=== PATIENT | female | born 1970 | race Caucasian/White ===

== ENCOUNTER → 2019-12-14 07:36 | Outpatient (BNVA) | payer MEDICAID, SELFPAY | PROVIDERS: PCP Family Medicine; Visit Provider Nurse Practitioner | DX: F33.3 Major depressive disorder, recurrent, severe with psychotic symptoms (principal); F43.12 Post-traumatic stress disorder, chronic; F41.1 Generalized anxiety disorder | CPT/HCPCS: 99214 ==

== ENCOUNTER → 2020-02-19 08:40 | Outpatient (BNVA) | payer MEDICAID, SELFPAY | PROVIDERS: PCP Family Medicine; Visit Provider Nurse Practitioner | DX: F33.3 Major depressive disorder, recurrent, severe with psychotic symptoms (principal); F43.12 Post-traumatic stress disorder, chronic; F41.1 Generalized anxiety disorder | CPT/HCPCS: 99213 ==

== ENCOUNTER → 2020-04-01 09:14 | Outpatient (BNVA) | payer MEDICAID, SELFPAY | PROVIDERS: PCP Family Medicine; Visit Provider Nurse Practitioner | DX: F33.3 Major depressive disorder, recurrent, severe with psychotic symptoms (principal); F43.12 Post-traumatic stress disorder, chronic; F41.1 Generalized anxiety disorder | CPT/HCPCS: 99214 ==

== ENCOUNTER → 2020-04-30 07:36 | Outpatient (BNVA) | payer MEDICAID, SELFPAY | PROVIDERS: PCP Family Medicine; Visit Provider Nurse Practitioner | DX: F33.3 Major depressive disorder, recurrent, severe with psychotic symptoms (principal); F43.12 Post-traumatic stress disorder, chronic; F41.1 Generalized anxiety disorder | CPT/HCPCS: 99214 ==

== ENCOUNTER → 2020-05-22 07:37 | Outpatient (BNVA) | payer MEDICAID, SELFPAY | PROVIDERS: PCP Family Medicine; Visit Provider Nurse Practitioner | DX: F41.1 Generalized anxiety disorder (principal); F43.12 Post-traumatic stress disorder, chronic; F33.3 Major depressive disorder, recurrent, severe with psychotic symptoms | CPT/HCPCS: 99214 ==

== ENCOUNTER → 2020-06-18 07:43 | Outpatient (BNVA) | payer MEDICAID, SELFPAY | PROVIDERS: PCP Family Medicine; Visit Provider Nurse Practitioner | DX: F41.1 Generalized anxiety disorder (principal); F43.12 Post-traumatic stress disorder, chronic; F33.3 Major depressive disorder, recurrent, severe with psychotic symptoms | CPT/HCPCS: 99214 ==

== ENCOUNTER → 2020-08-12 10:30 | Outpatient (BNVA) | payer MEDICAID, SELFPAY | PROVIDERS: PCP Family Medicine; Visit Provider Nurse Practitioner | DX: F41.1 Generalized anxiety disorder (principal); F43.12 Post-traumatic stress disorder, chronic; F33.3 Major depressive disorder, recurrent, severe with psychotic symptoms | CPT/HCPCS: 99214 ==

== ENCOUNTER → 2020-09-23 07:49 | Outpatient (BNVA) | payer MEDICAID, SELFPAY | PROVIDERS: PCP Family Medicine; Visit Provider Nurse Practitioner | DX: F41.1 Generalized anxiety disorder (principal); F43.12 Post-traumatic stress disorder, chronic; F33.3 Major depressive disorder, recurrent, severe with psychotic symptoms | CPT/HCPCS: 99214 ==

== ENCOUNTER 2024-10-30 09:16 | Emergency (ER) | payer MEDICARE, SELFPAY ==
[2024-10-30 09:40] VITALS: BP 162/93; PULSE 60; RESP 18; TEMP 36.7; O2SAT 96; BMI 29.2
[2024-10-30 09:43] LABS: Glucose Point of Care 150 mg/dL (70-110)
[2024-10-30 10:10] LABS: Basophils # 0.1 10^3/uL (0.0-0.1); Basophils % 1.2 %; Eosinophils # 0.2 10^3/uL (0.0-0.8); Eosinophils % 2.7 %; Hematocrit 43.3 % (36-47); Lymphocytes # 2.7 10^3/uL (0.8-4.8); Lymphocytes % 44.6 %; Mean Corpuscular Hemoglobin 28.7 pg (27-33); Mean Corpuscular Volume 86.8 fl (85-98); Mean Platelet Volume 9.6 fL (7.4-10.4); Monocytes # 0.5 10^3/uL (0.2-0.9); Neutrophils # 2.56 10^3/uL (1.8-7.7); Neutrophils % 42.5 %; Nucleated Red Blood Cells % 0 %; Platelet Count 377 10^3/cmm (157-399); Red Blood Count 4.99 10^6/uL (3.85-5.65); Red Cell Distribution Width 12.8 % (12.1-15.1); White Blood Count 6.01 10^3/uL (3.29-11.43)
[2024-10-30 10:22] LABS: Alanine Aminotransferase 15 U/L (0-33); Albumin Level 4.4 g/dL (3.5-5.2); Alkaline Phosphatase 176 U/L (35-105); Anion Gap 15.8 (5-19); Aspartate Amino Transferase 12 U/L (0-32); Blood Urea Nitrogen 11 mg/dL (6-20); Calcium 9.9 mg/dL (8.5-10.5); Carbon Dioxide 23 mmol/L (22-29); Chloride 104 mmol/L (98-107); Creatinine Clr Calc Pharmacy 113.8813; Globulin 3.3 g/dL (1.3-4.6); Glucose 148 mg/dL (65-115); Osmolality Calculated 290 mOsm/kg (285-295); Potassium 3.8 mmol/L (3.5-5.1); Sodium 139 mmol/L (136-145); Total Bilirubin 0.3 mg/dL (0.15-1.2); Total Protein 7.7 g/dL (6.6-8.7)
[2024-10-30 10:28] LABS: Bacteria Urine 2+ /hpf; Hyaline Casts Urine 1.21 /lpf; RBC Urine 0-2 /hpf (0-2)
[2024-10-30 10:31] LABS: Add Urine Culture? No; Add Urine Microscopic? YES; Bilirubin Urine Neg (Negative); Blood Urine Neg (Negative); Glucose Urine UA 1+ (Normal); Ketones Urine Negative (Negative); Leukocyte Esterase Urine Trace (Negative); Nitrate Urine Negative (Negative); Protein Urine Neg (Negative); Urine Appearance Slightly Cloudy (CLEAR); Urine Color Yellow (Yellow); Urobilinogen Urine Norm (Negative); pH Urine 5 (5-7)
[2024-10-30 10:33] VITALS: BP 136/90; PULSE 60; RESP 18; O2SAT 98
--- NOTE | 2024-10-30 10:40 | W.ED.GENADLT ---
HPI - General Adult General: Chief complaint: General Medical Stated complaint: low sugar problems Time Seen by Provider: 10/30/24 09:50 Source: patient Mode of arrival: ambulatory Limitations: no limitations History of Present Illness: Patient is a 54-year-old female who presents today with complaints of intermittent hypoglycemia. Patient wears a Ya Freestyle and reports that last night her meter/sensor was telling her her blood sugar was running in the 40s. She reports that she then ate a bowl of mac & cheese and drank a Mountain Dew. She reports that this brought her blood sugar up to the 60s prior to bed. Patient reports that when she woke up this morning her blood sugar was running in the 80s, so once again she drank a Mountain Dew. She notes intermittent hot flashes and some nausea that she feels correlates with her low blood sugars. Patient also having some mild right upper abdominal pain-states she read on some report while she was in the hospital that she had stage I non-alcoholic liver cirrhosis . Of note patient had her right arm amputated in November 2023 after waking up from a 3 day diabetic coma . She states she is a type I diabetic but was only diagnosis a few years ago. Was initially on Metformin but was taken off of this. She now has a basal insulin and takes Jardiance. Onset (ago): day(s) Associated symptoms: Reports diaphoresis (intermittent) and nausea; Deny chest pain, dyspnea, headache(s), rash, palpitations, syncope or vomiting Treatments prior to arrival: none Related Data Home Medications ?Medication ?Instructions ?Recorded ?Confirmed lisinopril 10 1 tab PO DAILY 08/28/19 10/30/24 mg-hydrochlorothiazide 12.5 mg tablet empagliflozin 25 mg tablet 25 mg PO DAILY 10/30/24 10/30/24 (Jardiance) icosapent ethyl 1 gram capsule 2 g PO BID 10/30/24 10/30/24 (Vascepa) insulin glargine 100 unit/mL (3 10 unit SUBCUT QPM 10/30/24 10/30/24 mL) subcutaneous pen (Lantus Solostar U-100 Insulin) levothyroxine 137 mcg tablet 137 mcg PO DAILY 10/30/24 10/30/24 (Synthroid) mirabegron 50 mg tablet,extended 50 mg PO DAILY 10/30/24 10/30/24 release 24 hr (Myrbetriq) ondansetron HCl 4 mg tablet 4 mg PO Q6H PRN Nausea And Vomiting 10/30/24 10/30/24 rosuvastatin 10 mg tablet 10 mg PO DAILY 10/30/24 10/30/24 Allergies Allergy/AdvReac Type Severity Reaction Status Date / Time No Known Allergies Allergy Unverified 08/28/19 13:32 Review of Systems Const: Reports: chills (intermittent) and diaphoresis (intermittent); Denies: fever(s) Eyes: Denies: change in vision Card: Denies: chest pain, palpitations or syncope Resp: Denies: dyspnea GI: Reports: abdominal pain (intermittent; RUQ) and nausea; Denies: vomiting, diarrhea or change in bowel habits : Denies: flank pain Musc: Denies: neck pain, back pain, extremity pain, extremity swelling, joint pain or joint swelling Skin/Breast: Denies: rash Neuro: Denies: headache(s), numbness in extremities, weakness in extremities, sensory changes, lack of coordination or dizziness PFSH ED PFSH: Medical History Major depressive disorder, recurrent, severe with psychotic symptoms Post-traumatic stress disorder, chronic Generalized anxiety disorder Social History Smoking and tobacco/nicotine status: current some day tobacco/nicotine user e-cigarettes E-Cigarette Details: vaporizer device Physical Exam Const: COMMON NORMALS: no acute distress, average body habitus, patient oriented x3, no limitations, healthy appearing, alert and well nourished GENERAL APPEARANCE: cooperative ORIENTATION/CONSCIOUSNESS: Yes awake, Yes oriented to person, Yes oriented to place and Yes oriented to time HENMT: COMMON NORMALS: normocephalic and atraumatic HEAD & SCALP: normal to inspection, normocephalic and atraumatic Eye: COMMON NORMALS: no scleral icterus GENERAL EYE: appearance normal, both eyes and all related structures Neck/C-Spine: GENERAL: Yes normal visual inspection Chest: COMMONS NORMALS: normal inspection of the chest and normal palpation of entire chest wall Resp: COMMON NORMALS: normal respiratory effort, No retractions, No use of accessory muscles and clear to auscultation bilaterally AUSCULTATION: clear to auscultation bilaterally Cardio: COMMON NORMALS: regular rate and regular rhythm RATE: regular rate RHYTHM: regular rhythm GI: COMMON NORMALS: Normal to inspection, nondistended, normoactive bowel sounds present, Soft to palpation, No hepatosplenomegaly present and no masses INSPECTION: Yes normal to inspection AUSCULTATION: Yes normoactive bowel sounds PALPATION: Yes Soft to palpation, Yes Tenderness to palpation present (GI) Details: RUQ (mild; non-surgical examination), No Guarding due to palpation present (GI), No Rigid due to palpation and Yes No hepatosplenomegaly present : COMMON NORMALS: Yes no CVA tenderness BLADDER/KIDNEY EXAM: Yes no CVA tenderness Back/Pelvis: COMMON NORMALS: no CVA tenderness Extremity: NARRATIVE EXTREMITY EXAM: Right arm amputation GENERAL: Yes normal exam except as noted Neuro: COMMON NORMALS: patient oriented x3, moves all extremities, no focal motor deficits and no sensory deficits noted SENSORIUM/ORIENTATION: Yes alert, Yes oriented to person, Yes oriented to place and Yes oriented to time Skin: COMMON NORMALS: no rashes or lesions noted GENERAL SKIN EXAM: no rashes or lesions noted Course Vital Signs: Vital signs: Vital Signs Temperature 98.1 F 10/30/24 09:40 Pulse Rate 73 10/30/24 13:24 Respiratory Rate 18 10/30/24 12:19 Blood Pressure 137/80 10/30/24 13:24 Pulse Oximetry 96 10/30/24 13:24 Oxygen Delivery Me thod Room Air 10/30/24 12:19 MDM - General Adult Medical Decision Making Patient here due to readings of hypoglycemia on her ya [employer]yle continuous glucose monitoring device. Upon arrival to the emergency department, her meter was telling her her blood sugar was 90 however our POC glucose check was 150. Her venapuncture/blood draw showing a blood glucoase of 148. During my examination, her meter was reading 72 and we rechecked POC glucose and it was reading 120s. There seems to be a 50-60 mg/dL difference between the two. She does states she has 4 days left on her current meter before changing. Was able to contact our outpatient pharmacy and get her replacement. This was replaced here in the emergency department and we awaited time for calibration. Her meter is now reading at 110 and our fingerstick glucometer showing 120. This is much more acceptable. Discussed continuing plan to follow up with PCP at [facility] (states she is just waiting for her Medicaid to kick in). She is having some minor right upper quadrant abdominal pain. Exam is nonsurgical. Her vital signs are stable. She has a normal white count. Normal LFTs. This can also be followed up as an outpatient. Return to ED precautions discussed. Medical Records I reviewed the patient's medical records. Lab Data I reviewed the patient's lab results. 10/30/24 08:55 10/30/24 08:55 Laboratory Results WBC 6.01 10^3/uL (3.29-11.43) 10/30/24 08:55 RBC 4.99 10^6/uL (3.85-5.65) 10/30/24 08:55 Hgb 14.30 g/dL (11.27-16.99) 10/30/24 08:55 Hct 43.3 % (36-47) 10/30/24 08:55 MCV 86.8 fl (85-98) 10/30/24 08:55 MCH 28.7 pg (27-33) 10/30/24 08:55 MCHC 33.0 g/dL (30-55) 10/30/24 08:55 RDW 12.8 % (12.1-15.1) 10/30/24 08:55 Plt Count 377 10^3/cmm (157-399) 10/30/24 08:55 MPV 9.6 fL (7.4-10.4) 10/30/24 08:55 Neut % (Auto) 42.5 % 10/30/24 08:55 Lymph % (Auto) 44.6 % 10/30/24 08:55 [place] % (Auto) 9.0 % 10/30/24 08:55 Eos % (Auto) 2.7 % 10/30/24 08:55 Baso % (Auto) 1.2 % 10/30/24 08:55 Neut # (Auto) 2.56 10^3/uL (1.8-7.7) 10/30/24 08:55 Lymph # (Auto) 2.7 10^3/uL (0.8-4.8) 10/30/24 08:55 [place] # (Auto) 0.5 10^3/uL (0.2-0.9) 10/30/24 08:55 Eos # (Auto) 0.2 10^3/uL (0.0-0.8) 10/30/24 08:55 Baso # (Auto) 0.1 10^3/uL (0.0-0.1) 10/30/24 08:55 Nucleated RBC % (auto) 0 % 10/30/24 08:55 Nucleated RBCs # 0.0 /100WBC 10/30/24 08:55 Sodium 139 mmol/L (136-145) 10/30/24 08:55 Potassium 3.8 mmol/L (3.5-5.1) 10/30/24 08:55 Chloride 104 mmol/L (98-107) 10/30/24 08:55 Carbon Dioxide 23 mmol/L (22-29) 10/30/24 08:55 Anion Gap 15.8 (5-19) 10/30/24 08:55 BUN 11 mg/dL (6-20) 10/30/24 08:55 Creatinine 0.6 mg/dL (0.5-0.9) 10/30/24 08:55 GFR Calculation 105.0 mL/min (90-130) 10/30/24 08:55 Glucose 148 mg/dL (65-115) H 10/30/24 08:55 POC Glucose 121 mg/dL (70-110) H 10/30/24 12:53 Calculated Osmolality 290 mOsm/kg (285-295) 10/30/24 08:55 Calcium 9.9 mg/dL (8.5-10.5) 10/30/24 08:55 Total Bilirubin 0.3 mg/dL (0.15-1.2) 10/30/24 08:55 AST 12 U/L (0-32) 10/30/24 08:55 ALT 15 U/L (0-33) 10/30/24 08:55 Alkaline Phosphatase 176 U/L (35-105) H 10/30/24 08:55 Total Protein 7.7 g/dL (6.6-8.7) 10/30/24 08:55 Albumin 4.4 g/dL (3.5-5.2) 10/30/24 08:55 Globulin 3.3 g/dL (1.3-4.6) 10/30/24 08:55 Urine Color Yellow (Yellow) 10/30/24 10:00 Urine Appearance Slightly cloudy (CLEAR) 10/30/24 10:00 Urine pH 5 (5-7) 10/30/24 10:00 Ur Specific [place] 1.030 (1.005-1.030) 10/30/24 10:00 Urine Protein Neg (Negative) 10/30/24 10:00 Urine Glucose (UA) 1+ (Normal) H 10/30/24 10:00 Urine Ketones Negative (Negative) 10/30/24 10:00 Urine Blood Neg (Negative) 10/30/24 10:00 Urine Nitrate Negative (Negative) 10/30/24 10:00 Urine Bilirubin Neg (Negative) 10/30/24 10:00 Urine Urobilinogen Norm mg/dL (Negative) 10/30/24 10:00 Ur Leukocyte Esterase Trace (Negative) H 10/30/24 10:00 Urine RBC 0-2 /hpf (0-2) 10/30/24 10:00 Urine WBC 6-10 /hpf (0-5) 10/30/24 10:00 Ur Squamous Epith Cells 11-20 /hpf (0-5) H 10/30/24 10:00 Amorphous Sediment Not Reportable 10/30/24 10:00 Urine Bacteria 2+ /hpf (NONE) H 10/30/24 10:00 Hyaline Casts 1.21 /lpf 10/30/24 10:00 No radiology studies performed this visit Discharge Plan Discharge Patient Disposition: Home Clinical Impression: Uses self-applied continuous glucose monitoring device Condition: Stable Prescriptions: No Action lisinopril-hydrochlorothiazide 10-12.5 mg tablet 1 tab PO DAILY levothyroxine [Synthroid] 137 mcg Tablet 137 mcg PO DAILY ondansetron HCl [Zofran] 4 mg Tablet 4 mg PO Q6H PRN (Reason: Nausea And Vomiting) rosuvastatin 10 mg Tablet 10 mg PO DAILY insulin glargine [Lantus Solostar U-100 Insulin] 100 unit/mL (3 mL) Insulin Pen 10 unit SUBCUT QPM mirabegron [Myrbetriq] 50 mg Tablet Extended Release 24 Hr 50 mg PO DAILY icosapent ethyl [Vascepa] 1 gram Capsule 2 g PO BID Jardiance 25 mg Tablet 25 mg PO DAILY Discharge Orders: Discharge ED (Routine); Ordered 10/30/24 Ordered By: Alexandria Mcgraw Referrals: Clarissa Moreno MD [Primary Care Provider] - Activity Restrictions/Additional Instructions: We have replaced your glucose monitor and your readings are now in the line with our glucose testing here. This hopefully will avoid any further error readings. As we discussed, please continue plan to follow-up with your primary care provider for further evaluation of symptoms. Print Language: Telugu Coding Level of Care Code ED [employer]
[2024-10-30 11:57] LABS: Glucose Point of Care 125 mg/dL (70-110)
[2024-10-30 12:19] VITALS: PULSE 73; RESP 18; O2SAT 97
[2024-10-30 12:57] LABS: Glucose Point of Care 121 mg/dL (70-110)
[2024-10-30 13:24] VITALS: BP 137/80; PULSE 73; O2SAT 96
== END 2024-10-30 13:25 | disposition home or self-care (01) ==
PROVIDERS: Emergency Provider Physician Assistant; PCP Family Medicine
DX: Z96.49 Presence of other endocrine implants (principal); R10.11 Right upper quadrant pain; Z79.4 Long term (current) use of insulin; F17.290 Nicotine dependence, other tobacco product, uncomplicated
CPT/HCPCS: 36415; 36416; 80053; 81001; 82962; 85025; 99283

== ENCOUNTER 2024-12-06 07:41 | Outpatient (CLI) | payer OTHER, SELFPAY ==
--- NOTE | 2024-12-06 07:45 | CT_ITS ---
WS: [id number] LDCT LUNG CANCER SCREENING TECHNIQUE: Noncontrast CT of the chest with coronal and sagittal reformatted images. CLINICAL INFORMATION: HX OF TOBACCO USE COMPARISON: None. DLP: 70.31 mGy.cm DIvol: Mean CTDIvol: 1.70 (mGy) All CT scans at [facility] use at least one of these dose optimization techniques: automated exposure control; mA and/or kV adjustment per patient size (includes targeted exams where dose is matched to clinical indication); or iterative reconstruction. FINDINGS: 3 mm noncalcified nodule RIGHT lower lobe. 3 mm noncalcified nodule RIGHT lower lobe laterally. Numerous tiny micronodules in the upper lobes. Bilateral breast implants. Normal caliber thoracic aorta. Adrenal glands are normal. Small gallbladder calculus. Small esophageal hiatal hernia. Moderate thoracic kyphosis. CT/CT lung screening [id number] IMPRESSION: LUNG-RADS: 2-Benign Appearance or Behavior FOLLOW UP: 12 Month: Continue annual screening with LDCT
== END 2024-12-06 07:42 | disposition home or self-care (01) ==
LOC: RAD 07:43
PROVIDERS: PCP Family Medicine; Visit Provider Family Medicine
DX: Z12.2 Encounter for screening for malignant neoplasm of respiratory organs (principal); Z87.891 Personal history of nicotine dependence; R91.8 Other nonspecific abnormal finding of lung field; Z98.82 Breast implant status; K80.20 Calculus of gallbladder without cholecystitis without obstruction; K44.9 Diaphragmatic hernia without obstruction or gangrene; M40.294 Other kyphosis, thoracic region
CPT/HCPCS: 71271

== ENCOUNTER → 2024-12-12 09:23 | Outpatient (BNVA) | payer MEDICARE, SELFPAY | PROVIDERS: PCP Family Medicine; Referring Provider Family Medicine; Visit Provider Surgery | DX: K21.9 Gastro-esophageal reflux disease without esophagitis (principal) | CPT/HCPCS: 99204 ==

== ENCOUNTER 2024-12-19 11:25 | Outpatient (CLI) | payer OTHER, MEDICAID, SELFPAY ==
--- NOTE | 2024-12-19 11:37 | XR_ITS ---
WS: [id number] XR hip LT 2-3V wo/w pel* [id number] REASON FOR EXAM: LEFT HIP PAIN FINDINGS: No fracture or focal bone lesion. Moderate narrowing of the posterior inferior joint space. Mild narrowing of the superior anterior joint space with mild subchondral sclerosis and osteophytosis of the acetabulum. Mild osteophytosis of the femoral head. XR/XR hip LT 2-3V wo/w pel* [id number] IMPRESSION: Mild osteoarthritis in the left hip as above.
== END 2024-12-19 11:26 | disposition home or self-care (01) ==
PROVIDERS: PCP Family Medicine; Visit Provider Nurse Practitioner Family
DX: M16.12 Unilateral primary osteoarthritis, left hip (principal); M25.752 Osteophyte, left hip
CPT/HCPCS: 73502

== ENCOUNTER 2025-01-03 07:39 | Day surgery (SDC) | payer OTHER, SELFPAY ==
[2025-01-03 07:56] VITALS: BP 133/88; PULSE 74; RESP 16; TEMP 36.3; O2SAT 99; BMI 28.3
--- NOTE | 2025-01-03 08:02 | W.PM.OPSUD ---
Surgery/Procedure H&P Update DATE OF PROCEDURE: January 03, 2025 DATE H&P PERFORMED: 12/12/24 H&P UPDATE INFORMATION: I have reviewed H&P completed within last 30 days, I have examined patient prior to procedure, No changes to prior documentation, Changes to prior documentation as noted here and Risks and benefits of the procedure reviewed PLANNED PROCEDURE: Operation Date: 01/03/25 09:00 Proposed Procedures p EGD 13018 K21.9(Not Applicable) - Dk Benitez MD
--- NOTE | 2025-01-03 08:17 | P.ANESASSM_ITS ---
Pre-Anesthetic Assessment Height/Weight: Height 1.5 m Weight 63.503 kg Temp Pulse Resp BP Pulse Ox O2 Del Method 97.3 F L 74 16 133/88 99 Room Air 01/03/25 07:56 01/03/25 07:56 01/03/25 07:56 01/03/25 07:56 01/03/25 07:56 01/03/25 07:56 Preop Diagnosis: GERD Operation Date: 01/03/25 09:00 Proposed Procedures p EGD 02400 K21.9(Not Applicable) - Dk Benitez MD Familial anesthetic complications: none Was Beta Wan taken within 24 hours: N/A Was Clonidine taken within 24 hours: N/A Last intake: Intake Last Liquid Date 01/02/25 Last Liquid Time 19:00 Last Solid Date 01/02/25 Last Solid Time 19:00 Social Tobacco (vape) Exam alert, oriented x 3, clear to auscultation bilaterally and regular rate & rhythm Airway Submandibular: within normal limits Cervical ROM: within normal limits Mallampati: Class I Dentition: false Pulmonary None reported CV/HEM Hypertension None reported Hepatic Cirrhosis (stage 1) GI Gastroesophageal Reflux Disease Metabolic Diabetes Mellitus, Hyperlipidemia and Thyroid Disease [facility] None reported Neuropsych Anxiety and Depression Anesthetic Plan ASA status: 3 Anesthesia: MAC Medications/Allergies Home Medications ?Medication ?Instructions ?Recorded ?Confirmed ?Last Taken ?Type lisinopril 10 1 tab PO DAILY 08/28/1912/1701/02/25 07:00 History mg-hydrochlorothiazide 12.5 mg tablet insulin glargine 100 unit/mL (3 10 unit SUBCUT QPM 01/01/25 01/02/25 07:00 History mL) subcutaneous pen (Lantus Solostar U-100 Insulin) levothyroxine 137 mcg tablet 137 mcg PO DAILY 10/30/24 01/01/25 01/03/25 05:00 History (Synthroid) mirabegron 50 mg tablet,extended 50 mg PO DAILY 01/01/25 01/02/25 07:00 History release 24 hr (Myrbetriq) ondansetron HCl 4 mg tablet 4 mg PO Q6H PRN Nausea And Vomiting 10/30/24 01/01/25 01/02/25 07:00 History rosuvastatin 10 mg tablet 10 mg PO DAILY 10/30/24 0601/1001/02/25 07:00 History gabapentin 300 mg capsule 300 mg PO BID 12/12/2401/0101/02/25 07:00 History hydroxyzine HCl 25 mg tablet 25 mg PO QID PRN Anxiety 12/12/24 01/01/25 01/02/25 07:00 History nystatin 100,000 unit/gram topical 1 applic topical DA EDGARD 12/12/24 01/01/25 01/02/25 07:00 History powder Allergies Allergy/AdvReac Type Severity Reaction Status Date / Time epinephrine AdvReac Severe ALGY-Redness Verified 01/03/25 07:53 of Skin [facility] Anesthesia Medical History (Updated 01/03/25 @ 08:21 by Kaylan Keller CRNA) 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
[2025-01-03 08:21] LABS: Glucose Point of Care 169 mg/dL (70-110)
[2025-01-03] MEDS: sodium chloride 0.9% 1,000 ML 15 ML IV (08:33)
[2025-01-03 08:54] VITALS: BP 126/61; PULSE 77; RESP 16; TEMP 36.1; O2SAT 94
[2025-01-03 09:07] VITALS: BP 124/63; PULSE 67; RESP 18; O2SAT 94
--- NOTE | 2025-01-03 09:20 | ANE.PACU2 ---
Inpatient post-anesthesia follow up: Airway intact: Yes Vital signs: Temperature 97.0 F Pulse Rate 67 Respiratory Rate 18 Blood Pressure 124/63 Pulse Oximetry 94 Oxygen Delivery Me thod Room Air Oxygen Flow Rate 3 Fraction of Inspir ed Oxygen Hydration adequate: Yes Nausea and vomiting: No Pain level: 1 Mental status: Baseline
== END 2025-01-03 09:20 | disposition home or self-care (01) ==
PROVIDERS: PCP Family Medicine; Visit Provider Surgery
PROC: 0DJ08ZZ Inspection of Upper Intestinal Tract, Via Natural or Artificial Opening Endoscopic (ICD-10-PCS; principal; 2025-01-03 09:00)
DX: K22.70 Barrett's esophagus without dysplasia (principal); K29.50 Unspecified chronic gastritis without bleeding; K21.00 Gastro-esophageal reflux disease with esophagitis, without bleeding; E11.9 Type 2 diabetes mellitus without complications; E78.5 Hyperlipidemia, unspecified; F17.290 Nicotine dependence, other tobacco product, uncomplicated; K74.60 Unspecified cirrhosis of liver; Z79.4 Long term (current) use of insulin; Z79.890 Hormone replacement therapy; Z79.899 Other long term (current) drug therapy
CPT/HCPCS: 36416; 43239; 82962; 88305; 88342; J2704; J7030

== ENCOUNTER 2025-04-17 07:50 | Outpatient (CLI) | payer MEDICARE, MEDICAID, SELFPAY ==
--- NOTE | 2025-04-17 08:02 | XRR_ITS ---
PROCEDURE INFORMATION: Exam: XR Lumbosacral Spine Exam date and time: 04/17/2025 8:11 AM Age: 54 years old Clinical indication: Low back pain; Lower back pain x few years. PT states she feels like her back pain makes her adjust how she is standing. TECHNIQUE: Imaging protocol: Radiologic exam of the lumbosacral spine. Views: 2 or 3 views. COMPARISON: CR XR hip LT 2-3V wo/w pel* [id number] 12/19/2024 11:42 AM FINDINGS: Bones/joints: There is a mild levoscoliosis of the lumbar spine. No evidence of a fracture or destructive bone lesion. There is mild degenerative facet arthropathy in the lower lumbar spine. No significant intervertebral disc space narrowing appreciated. Soft tissues: Unremarkable. XR/XR lumbar spine 2-3V* [id number] IMPRESSION: Mild degenerative changes in the lower lumbar spine. No acute osseous lesions appreciated.
== END 2025-04-17 07:51 | disposition home or self-care (01) ==
PROVIDERS: PCP Family Medicine; Visit Provider Family Medicine
DX: E10.9 Type 1 diabetes mellitus without complications (principal); M47.816 Spondylosis without myelopathy or radiculopathy, lumbar region; E03.9 Hypothyroidism, unspecified; Z98.890 Other specified postprocedural states; Z90.89 Acquired absence of other organs; C73 Malignant neoplasm of thyroid gland; M41.86 Other forms of scoliosis, lumbar region
CPT/HCPCS: 72100; 99204

== ENCOUNTER 2025-04-27 09:53 | Outpatient (CLI) | payer OTHER, SELFPAY ==
[2025-04-27 11:14] LABS: Alanine Aminotransferase 13 U/L (0-33); Albumin Level 4.3 g/dL (3.5-5.2); Alkaline Phosphatase 165 U/L (35-105); Anion Gap 16.1 (5-19); Aspartate Amino Transferase 13 U/L (0-32); Blood Urea Nitrogen 11 mg/dL (6-20); Calcium 9.1 mg/dL (8.5-10.5); Carbon Dioxide 23 mmol/L (22-29); Chloride 101 mmol/L (98-107); Globulin 3.2 g/dL (1.3-4.6); Glucose 143 mg/dL (65-115); Osmolality Calculated 284 mOsm/kg (285-295); Potassium 4.1 mmol/L (3.5-5.1); Sodium 136 mmol/L (136-145); Total Protein 7.5 g/dL (6.6-8.7)
== END 2025-04-27 09:54 | disposition home or self-care (01) ==
LOC: LAB 09:56
PROVIDERS: PCP Family Medicine; Visit Provider Internal Medicine
DX: E10.9 Type 1 diabetes mellitus without complications (principal); C73 Malignant neoplasm of thyroid gland; Z98.890 Other specified postprocedural states; Z90.89 Acquired absence of other organs
CPT/HCPCS: 36415; 80053; 82947; 84432; 84681; 86337; 86341; 86800

== ENCOUNTER 2025-04-30 13:53 | Outpatient (CLI) | payer OTHER, MEDICAID, SELFPAY ==
--- NOTE | 2025-04-30 14:45 | US_ITS ---
WS: [id number] THYROID ULTRASOUND REASON FOR EXAM: thyroid cancer TECHNIQUE: Grayscale and Doppler ultrasound examination of the thyroid gland. FINDINGS: Status post thyroidectomy with no definite remnant thyroid tissue and no mass in the thyroidectomy bed. There are some mildly enlarged cervical lymph nodes which are elongated and have no significant increase in their short axis. There is abundant lymph node hilar fat within these nodes. US/US thyroid [id number] IMPRESSION: Status post thyroidectomy with no significant abnormality within the thyroidect frank bed. Mild reactive cervical lymph nodes.
== END 2025-04-30 13:54 | disposition home or self-care (01) ==
LOC: RAD 13:53
PROVIDERS: PCP Family Medicine; Visit Provider Internal Medicine
DX: C73 Malignant neoplasm of thyroid gland (principal); Z98.890 Other specified postprocedural states; E89.0 Postprocedural hypothyroidism; R59.0 Localized enlarged lymph nodes
CPT/HCPCS: 76536

== ENCOUNTER → 2025-05-01 08:23 | Outpatient (BNVA) | payer OTHER, MEDICAID, SELFPAY | PROVIDERS: PCP Family Medicine; Visit Provider Surgery | DX: K22.70 Barrett's esophagus without dysplasia (principal) | CPT/HCPCS: 99213 ==

== ENCOUNTER 2025-05-14 14:52 | Emergency (ER) | payer OTHER, MEDICAID, SELFPAY ==
--- OUTSIDE RECORDS SUMMARY | 2023-09-27 09:35 | XMS_ITS | Continuity of Care Document ---
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 angry Thought Process: linear and goal directed Thought Content: denies si/hi/sb, visual/auditory hallucinationsOrientation: A/O x 4Memory/Concentration: intact/intactInsight/judgement: fair/fair EST PCP NEEDS A , HAS HAD FAMILY DR MONTE SIGNED. Instructions Date Instruction Additional Infor bishopion Giving encouragement to exercise Related to Body mass index (BMI) 32.0-32.9, adult Giving encouragement to exercise Related to Body mass index (BMI) 32.0-32.9, adult Dietary management e ducation, guidance, and counseling Related to Body mass index (BMI) 32.0-32.9, adult Dietary management e ducation, guidance, and counseling Related to Body mass index (BMI) 32.0-32.9, adult Management of mental health treatment Related to Schizoaffective Disorder, Bipolar type Dietary management e ducation, guidance, and counseling Related to Body mass index (BMI) 30.0-30.9, adult SOGI Documentation Women's Health Education Giving encouragement to exercise Related to Body mass index (BMI) 30.0-30.9, adult Giving encouragement to exercise Related to Body mass index (BMI) 30.0-30.9, adult Dietary management e ducation, guidance, and counseling Related to Body mass index (BMI) 30.0-30.9, adult Management of mental health treatment Related to Major Depressive Disorder, Single episode, Moderate Giving encouragement to exercise Related to Body mass index (BMI) 31.0-31.9, adult Dietary management e ducation, guidance, and counseling Related to Body mass index (BMI) 31.0-31.9, adult Community Resource Guide Confidential History Assessments Type Assessment Date No Information
[2025-05-14 14:57] VITALS: BP 154/107; PULSE 81; RESP 16; TEMP 36.6; O2SAT 95; BMI 30.2
--- NOTE | 2025-05-14 15:06 | US_ITS ---
WS: [id number] RIGHT UPPER QUADRANT ULTRASOUND HISTORY: RUQ pain COMPARISON: None available. Liver: 17.3 cm in length. Normal size liver and echogenicity. No bile duct dilatation or mass. Portal Vein: Normal hepatopetal flow with monophasic waveform. Gallbladder: Normally distended gallbladder with stones. No pericholecystic fluid or gallbladder wall thickening. CBD: 0.3 cm Pancreas: Normal size and echogenicity. Right kidney: 10.1 cm in length. Normal size and echogenicity. No hydronephrosis or mass. Aorta and IVC: Unremarkable abdominal aorta and IVC. No ascites. US/US gall bladder [id number] IMPRESSION: 1. Cholelithiasis without evidence for acute cholecystitis. 2. No intrahepatic bile duct dilatation.
--- NOTE | 2025-05-14 15:06 | XR_ITS ---
WS: [id number] Exam: XR chest 1V portable [id number] Date/Time of Exam: 05/14/2025 3:08 PM Reason For Exam: R lower chest/RUQ pain No priors. Lungs are clear. Normal cardiomediastinal silhouette and regional bony elements. XR/XR chest 1V portable [id number] IMPRESSION: 1. Negative chest.
--- NOTE | 2025-05-14 15:06 | W.ED.ABDPA2 ---
HPI - Abdominal Pain General: Chief Complaint: Abdominal Pain Stated Complaint: abd pain Time Seen by Provider: 05/14/25 14:54 Source: patient Mode of arrival: ambulatory Limitations: no limitations History of Present Illness: Patient is a 54-year-old female with a history of Moseley's esophagus here for right upper quadrant pain that she first began noticing approximately 2 to 3 days ago. She states pain initially was intermittent but now seems to be more constant. She does not feel like eating affects her symptoms. She feels like it is somewhat worse with movement. She is not complaining of chest pain, shortness of breath, difficulty breathing. She does have a history of stomach problems and can often feel nauseous with this but has never had similar discomforts. She states she is passing stool and gas normally. She has not noted any rash or skin changes to the area. She underwent EGD back in December by Dr. Benitez for her Moseley's esophagus. MD elicited complaint: abdominal pain Pertinent past history: other (Moseley's esophagus) Onset (ago): day(s) Pain Consistency: constant Location: RUQ Severity: moderate Quality: sharp Radiation: none Migration to: no migration Exacerbating factors: movement Relieving factors: nothing Associated Symptoms: Reports no associated symptoms and nausea (chronic-reports history of stomach problems ); Denies chills, diarrhea, dysuria, fever(s), heartburn, syncope and vomiting Related Data Home Medications ?Medication ?Instructions ?Recorded ?Confirmed lisinopril 10 1 tab PO DAILY 08/28/19 05/04/25 mg-hydrochlorothiazide 12.5 mg tablet insulin glargine 100 unit/mL (3 10 unit SUBCUT QPM 10/30/24 05/04/25 mL) subcutaneous pen (Lantus Solostar U-100 Insulin) levothyroxine 137 mcg tablet 137 mcg PO DAILY 10/30/24 05/04/25 (Synthroid) mirabegron 50 mg tablet,extended 50 mg PO DAILY 10/30/24 05/04/25 release 24 hr (Myrbetriq) ondansetron HCl 4 mg tablet 4 mg PO Q6H PRN Nausea And Vomiting 10/30/24 05/04/25 gabapentin 300 mg capsule 300 mg PO BID 12/12/24 05/04/25 hydroxyzine HCl 25 mg tablet 25 mg PO QID PRN Anxiety 12/12/24 05/04/25 nystatin 100,000 unit/gram topical 1 applic topical DAILY 12/12/24 05/04/25 powder blood-glucose sensor (FreeStyle #1 ea 04/17/25 05/04/25 Ya 3 Sensor device) rosuvastatin 20 mg tablet mg PO 04/17/25 05/04/25 Previous Rx's ?Medication ?Instructions ?Recorded cariprazine 3 mg capsule (Vraylar) 3 mg PO DAILY #30 caps 02/02/25 hydroxyzine HCl 50 mg tablet 100 mg (2 x 50 mg) PO .HS #60 tabs 02/02/25 trazodone 100 mg tablet 100 mg PO .HS #30 tabs 02/02/25 escitalopram oxalate 20 mg tablet 20 mg PO DAILY #30 tabs 03/09/25 (Lexapro) Allergies Allergy/AdvReac Type Severity Reaction Status Date / Time epinephrine AdvReac Severe ALGY-Redness Verified 05/04/25 13:02 of Skin Review of Systems Const: Denies: fever(s), chills, body aches, fatigue or malaise Eyes: Denies: change in vision or blurry vision Card: Denies: chest pain, palpitations, irregular heart rhythm, lightheadedness, syncope or dyspnea on exertion Resp: Denies: dyspnea, productive cough or pain on inspiration GI: Reports: abdominal pain and nausea (chronic-reports history of stomach problems ); Denies: vomiting, heartburn or diarrhea : Denies: flank pain or dysuria Musc: Denies: neck pain, back pain, extremity pain, extremity swelling or joint pain Skin/Breast: Denies: rash Neuro: Denies: headache(s), numbness in extremities, weakness in extremities or sensory changes PFS ED PFSH: Medical History Nicotine vapor product user 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 Physical Exam Const: COMMON NORMALS: no acute distress, average body habitus, patient oriented x3, no limitations, healthy appearing, alert and well nourished GENERAL APPEARANCE: cooperative ORIENTATION/CONSCIOUSNESS: Yes awake, Yes oriented to person, Yes oriented to place and Yes oriented to time HENMT: COMMON NORMALS: normocephalic and atraumatic HEAD & SCALP: normocephalic and atraumatic Neck/C-Spine: COMMON NORMALS: full ROM, no lymphadenopathy, supple and no meningeal signs Chest: COMMONS NORMALS: normal inspection of the chest Resp: COMMON NORMALS: normal respiratory effort and clear to auscultation bilaterally AUSCULTATION: clear to auscultation bilaterally Cardio: COMMON NORMALS: regular rate and regular rhythm RATE: regular rate RHYTHM: regular rhythm GI: COMMON NORMALS: Normal to inspection, nondistended, normoactive bowel sounds present, Soft to palpation, No hepatosplenomegaly present and no masses INSPECTION: Yes normal to inspection AUSCULTATION: Yes normoactive bowel sounds PALPATION: Yes Soft to palpation, Yes Tenderness to palpation present (GI) (RUQ/R lower rib-chest wall), No Guarding due to palpation present (GI), No Rigid due to palpation and Yes No hepatosplenomegaly present GI image (female):  1. TTP : COMMON NORMALS: Yes no CVA tenderness BLADDER/KIDNEY EXAM: Yes no CVA tenderness Back/Pelvis: COMMON NORMALS: no CVA tenderness and thoracic and lumbar spine normal to inspection Extremity: COMMON NORMALS: normal to inspection NARRATIVE EXTREMITY EXAM: R UE amputation GENERAL: Yes normal exam except as noted Neuro: COMMON NORMALS: patient oriented x3, moves all extremities, no focal motor deficits, no sensory deficits noted and gait normal SENSORIUM/ORIENTATION: Yes alert, Yes oriented to person, Yes oriented to place and Yes oriented to time MENINGEAL SIGNS: Yes no meningeal signs Skin: COMMON NORMALS: no rashes or lesions noted GENERAL SKIN EXAM: no rashes or lesions noted Course Vital Signs: Vital signs: Vital Signs Temperature 97.9 F 05/14/25 14:57 Pulse Rate 81 05/14/25 14:57 Respiratory Rate 16 05/14/25 14:57 Blood Pressure 154/107 05/14/25 14:57 Pulse Oximetry 95 05/14/25 14:57 Oxygen Delivery Me thod Room Air 05/14/25 14:57 MDM - Abdominal Pain Medical Decision Making Patient presents with RUQ abdominal pain/R lower chest pain. Differential includes life-threatening and benign etiologies such as hepatitis, cholecystitis, choledocholithiasis, cholangitis, right lower lobe pneumonia, right lower pleural effusion, musculoskeletal chest wall pain, costochondritis, among others. DATA: History obtained from patient. Prior records reviewed. Labs ordered/reviewed: CBC, CMP, lipase, coags-overall fairly unremarkable. Imaging ordered/reviewed: CXR and US gallbladder-CXR unremarkable, US showing gallstones without evidence for cholecystitis. TREATMENT: Patient was not administered any medications here in the emergency department. IMPRESSION: Working diagnosis is symptomatic cholelithiasis vs chest wall pain/strain. DISPOSITION: Patient discharged home in good/stable condition. Prescriptions: none. Follow-up arranged with general surgery via CM referral. Patient advised on strict return precautions and verbalized understanding. Differential Diagnosis Likely abdominal pain Medical Records I reviewed the patient's medical records. Lab Data I reviewed the patient's lab results. 05/14/25 15:10 05/14/25 15:10 Labs/Radiology: Radiology Impressions Chest X-Ray 05/14/25 15:06 IMPRESSION: 1. Negative chest. Gallbladder Ultrasound 05/14/25 15:06 IMPRESSION: 1. Cholelithiasis without evidence for acute cholecystitis. 2. No intrahepatic bile duct dilatation. Laboratory Results WBC 8.10 10^3/uL (3.29-11.43) 05/14/25 15:10 RBC 4.99 10^6/uL (3.85-5.65) 05/14/25 15:10 Hgb 13.90 g/dL (11.27-16.99) 05/14/25 15:10 Hct 42.2 % (36-47) 05/14/25 15:10 MCV 84.6 fl (85-98) L 05/14/25 15:10 MCH 27.9 pg (27-33) 05/14/25 15:10 MCHC 32.9 g/dL (30-55) 05/14/25 15:10 RDW 12.7 % (12.1-15.1) 05/14/25 15:10 Plt Count 410 10^3/cmm (157-399) H 05/14/25 15:10 MPV 9.2 fL (7.4-10.4) 05/14/25 15:10 Neut % (Auto) 52.4 % 05/14/25 15:10 Lymph % (Auto) 37.3 % 05/14/25 15:10 [place] % (Auto) 7.9 % 05/14/25 15:10 Eos % (Auto) 1.5 % 05/14/25 15:10 Baso % (Auto) 0.7 % 05/14/25 15:10 Neut # (Auto) 4.24 10^3/uL (1.8-7.7) 05/14/25 15:10 Lymph # (Auto) 3.0 10^3/uL (0.8-4.8) 05/14/25 15:10 [place] # (Auto) 0.6 10^3/uL (0.2-0.9) 05/14/25 15:10 Eos # (Auto) 0.1 10^3/uL (0.0-0.8) 05/14/25 15:10 Baso # (Auto) 0.1 10^3/uL (0.0-0.1) 05/14/25 15:10 Nucleated RBC % (auto) 0 % 05/14/25 15:10 Nucleated RBCs # 0.0 /100WBC 05/14/25 15:10 PT 12.60 SECONDS (12.1-14.9) 05/14/25 15:10 INR 0.88 (0.8-1.2) 05/14/25 15:10 Sodium 138 mmol/L (136-145) 05/14/25 15:10 Potassium 4.2 mmol/L (3.5-5.1) 05/14/25 15:10 Chloride 102 mmol/L (98-107) 05/14/25 15:10 Carbon Dioxide 23 mmol/L (22-29) 05/14/25 15:10 Anion Gap 17.2 (5-19) 05/14/25 15:10 BUN 8 mg/dL (6-20) 05/14/25 15:10 Creatinine 0.7 mg/dL (0.5-0.9) 05/14/25 15:10 GFR Calculation 87.9 mL/min (90-130) L 05/14/25 15:10 Glucose 134 mg/dL (65-115) H 05/14/25 15:10 Calculated Osmolality 286 mOsm/kg (285-295) 05/14/25 15:10 Calcium 9.7 mg/dL (8.5-10.5) 05/14/25 15:10 Total Bilirubin 0.3 mg/dL (0.15-1.2) 05/14/25 15:10 AST 13 U/L (0-32) 05/14/25 15:10 ALT 17 U/L (0-33) 05/14/25 15:10 Alkaline Phosphatase 182 U/L (35-105) H 05/14/25 15:10 Total Protein 7.8 g/dL (6.6-8.7) 05/14/25 15:10 Albumin 4.5 g/dL (3.5-5.2) 05/14/25 15:10 Globulin 3.3 g/dL (1.3-4.6) 05/14/25 15:10 Lipase 43 U/L (13-60) 05/14/25 15:10 All radiology interpretation(s) finalized by discharge Discharge Plan Discharge Patient Disposition: Home Clinical Impression: Abdominal pain, RUQ Cholelithiasis Qualifiers: Cholelithiasis location: gallbladder Cholecystitis presence: without cholecystitis Biliary obstruction: without biliary obstruction Qualified Code(s): K80.20 - Calculus of gallbladder without cholecystitis without obstruction Condition: Stable Prescriptions: No Action lisinopril-hydrochlorothiazide 10-12.5 mg tablet 1 tab PO DAILY gabapentin 300 mg capsule 300 mg PO BID hydroxyzine HCl 25 mg tablet 25 mg PO QID PRN (Reason: Anxiety) nystatin 100,000 unit/gram powder 1 applic topical DAILY escitalopram oxalate [Lexapro] 20 mg tablet 20 mg PO DAILY Qty: 30 1RF trazodone 100 mg tablet 100 mg PO .HS Qty: 30 1RF hydroxyzine HCl 50 mg tablet 100 mg PO .HS Qty: 60 1RF Vraylar 3 mg capsule 3 mg PO DAILY Qty: 30 1RF rosuvastatin 20 mg tablet PO (DME) FreeStyle Ya 3 Sensor Device See Rx Instructions .ROUTE .MEDSUPPLY Qty: 1 Rx Instructions: As directed levothyroxine [Synthroid] 137 mcg Tablet 137 mcg PO DAILY ondansetron HCl 4 mg Tablet 4 mg PO Q6H PRN (Reason: Nausea And Vomiting) insulin glargine [Lantus Solostar U-100 Insulin] 100 unit/mL (3 mL) Insulin Pen 10 unit SUBCUT QPM mirabegron [Myrbetriq] 50 mg Tablet Extended Release 24 Hr 50 mg PO DAILY Discharge Orders: Discharge ED (Routine); Ordered 05/14/25 Ordered By: Alexandria Mcgraw Referrals: Anahi Hernandez DO [Primary Care Provider, [employer]] Patient Instructions: Abdominal Pain (ED), Patient Portal & Jaylan Instructions Activity Restrictions/Additional Instructions: As we discussed, ultrasound showing gallstones but no evidence that your gallbladder was acutely infected. We discussed how gallstones can be asymptomatic or patients can have pain with these. I think it is reasonable to follow-up with general surgery as we discussed. We discussed other etiologies of your discomfort including chest wall pain, rib pain, etc. You may return to the emergency department at anytime for worsening or uncontrollable pain, fevers, yellowing to your skin or eyes, or any other concerns you may have. You may otherwise follow-up with primary care. Print Language: Canadian Coding Level of Care Code ED [employer]or for Marge [employer]
[2025-05-14 15:21] LABS: Hematocrit 42.2 % (36-47); Hemoglobin 13.90 g/dL (11.27-16.99); Mean Corpuscular HGB Conc 32.9 g/dL (30-55); Mean Corpuscular Hemoglobin 27.9 pg (27-33); Mean Corpuscular Volume 84.6 fl (85-98); Nucleated Red Blood Cells % 0 %; Platelet Count 410 10^3/cmm (157-399); Red Blood Count 4.99 10^6/uL (3.85-5.65); White Blood Count 8.10 10^3/uL (3.29-11.43)
[2025-05-14 15:34] LABS: INR 0.88 (0.8-1.2); Prothrombin Time 12.60 SECONDS (12.1-14.9)
[2025-05-14 15:38] LABS: Alanine Aminotransferase 17 U/L (0-33); Albumin Level 4.5 g/dL (3.5-5.2); Alkaline Phosphatase 182 U/L (35-105); Anion Gap 17.2 (5-19); Aspartate Amino Transferase 13 U/L (0-32); Blood Urea Nitrogen 8 mg/dL (6-20); Calcium 9.7 mg/dL (8.5-10.5); Carbon Dioxide 23 mmol/L (22-29); Chloride 102 mmol/L (98-107); Creatinine Clr Calc Pharmacy 82.2545; Globulin 3.3 g/dL (1.3-4.6); Glucose 134 mg/dL (65-115); Lipase 43 U/L (13-60); Osmolality Calculated 286 mOsm/kg (285-295); Potassium 4.2 mmol/L (3.5-5.1); Sodium 138 mmol/L (136-145); Total Protein 7.8 g/dL (6.6-8.7)
--- NOTE | 2025-05-14 16:06 | DCPLANNER ---
messaged gen surg for er f/u
[2025-05-14 16:17] VITALS: BP 138/79; PULSE 87; O2SAT 97
== END 2025-05-14 16:18 | disposition home or self-care (01) ==
PROVIDERS: Emergency Medicine; Emergency Provider Physician Assistant; PCP Family Medicine
DX: K80.20 Calculus of gallbladder without cholecystitis without obstruction (principal); Z79.4 Long term (current) use of insulin; F17.290 Nicotine dependence, other tobacco product, uncomplicated; Z85.850 Personal history of malignant neoplasm of thyroid
CPT/HCPCS: 36415; 71045; 76705; 80053; 83690; 85025; 85610; 99284

== ENCOUNTER → 2025-05-28 09:43 | Outpatient (BNVA) | payer OTHER, MEDICAID, SELFPAY | PROVIDERS: PCP Family Medicine; Visit Provider Surgery | DX: K80.20 Calculus of gallbladder without cholecystitis without obstruction (principal); R10.11 Right upper quadrant pain | CPT/HCPCS: 99204; 99214 ==

== ENCOUNTER 2025-06-12 06:25 | Day surgery (SDC) | payer OTHER, MEDICAID, SELFPAY ==
[2025-06-12] VITALS (16 sets, daily range): BP systolic 114–150; BP diastolic 66–96; PULSE 74–107; RESP 17–18; TEMP 36.3–36.9; O2SAT 94–98; BMI 30.2
--- NOTE | 2025-06-12 06:50 | ANES.PREANE2 ---
Pre-Anesthetic Assessment Height/Weight: Height 1.52 m Operation Date: 06/12/25 07:00 Proposed Procedures p Laparoscopic POSSIBLE OPEN Cholecystectomy [place] [address]38 K80.20 R10.11(Not Applicable) - Dk Benitez MD Familial anesthetic complications: None Was Beta Wan taken within 24 hours: N/A Was Clonidine taken within 24 hours: N/A Last intake: > 8hrs Social No alcohol and No tobacco Exam alert, oriented x 3, clear to auscultation bilaterally and regular rate & rhythm Airway Mallampati: Class III Dentition: other (None) CV/HEM Hypertension Metabolic Diabetes Mellitus and Thyroid Disease Anesthetic Plan ASA status: 3 Anesthesia: General Risk of > 500 ml blood loss (7ml/kg in children): No Medications/Allergies Home Medications ?Medication ?Instructions ?Recorded ?Confirmed ?Last Taken ?Type lisinopril 10 1 tab PO DAILY 08/28/19 06/12/25 06/11/25 History mg-hydrochlorothiazide 12.5 mg tablet insulin glargine 100 unit/mL (3 10 unit SUBCUT QPM 10/30/24 06/12/25 06/11/25 History mL) subcutaneous pen (Lantus Solostar U-100 Insulin) levothyroxine 137 mcg tablet 137 mcg PO DAILY 10/30/24 06/12/25 06/11/25 History (Synthroid) mirabegron 50 mg tablet,extended 50 mg PO DAILY 10/30/24 06/12/25 06/11/25 History release 24 hr (Myrbetriq) gabapentin 300 mg capsule 300 mg PO BID 12/12/24 06/12/25 06/11/25 History nystatin 100,000 unit/gram topical 1 applic topical DAILY 12/12/24 06/12/25 06/11/25 History powder cariprazine 3 mg capsule (Vraylar) 3 mg PO DAILY #30 caps 02/02/25 06/12/25 06/11/25 Rx trazodone 100 mg tablet 100 mg PO .HS #30 tabs 02/02/25 06/12/25 06/11/25 Rx escitalopram oxalate 20 mg tablet 20 mg PO DAILY #30 tabs 03/09/25 06/12/25 06/11/25 Rx (Lexapro) blood-glucose sensor (FreeStyle #1 ea 04/17/25 06/07/25 Unknown History Ya 3 Sensor device) rosuvastatin 20 mg tablet 20 mg PO DAILY 04/17/25 06/12/25 06/11/25 History hydroxyzine HCl 50 mg tablet 100 mg (2 x 50 mg) PO .HS #60 tabs 05/23/25 06/12/25 06/11/25 Rx ondansetron 8 mg disintegrating 8 mg PO Q8H PRN nausea and 05/28/25 06/07/25 06/07/25 Rx tablet vomiting #20 tabs Allergies Allergy/AdvReac Type Severity Reaction Status Date / Time epinephrine AdvReac Severe ALGY-Redness Verified 06/07/25 15:16 of Skin [facility] Anesthesia Medical History Nicotine vapor product user 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
--- NOTE | 2025-06-12 06:57 | P.HPUD_ITS ---
Surgery/Procedure H&P Update DATE OF PROCEDURE: June 12, 2025 DATE H&P PERFORMED: 05/28/25 H&P UPDATE INFORMATION: I have reviewed H&P completed within last 30 days, I have examined patient prior to procedure, No changes to prior documentation, H&P is in [facility] EMR on date indicated and Risks and benefits of the procedure reviewed PLANNED PROCEDURE: Operation Date: 06/12/25 07:00 Proposed Procedures p Laparoscopic POSSIBLE OPEN Cholecystectomy [place] 62569 K80.20 R10.11(Not Applicable) - Dk Benitez MD
[2025-06-12] MEDS: ceFAZolin 2,000 mg SDV 2000 MG IVP (07:04)
[2025-06-12] MEDS: BUPivacaine 0.25% INJ 10 mL INJECTION (07:28)
[2025-06-12] MEDS: lidocaine 2% INJ 20 mL INJECTION (07:29)
--- NOTE | 2025-06-12 08:30 | PM.OP ---
Operative Report Date of procedure: June 12, 2025 Pre-op diagnosis: Symptomatic cholelithiasis Post-op diagnosis: same Post-op findings: There was a posterior artery inserting high into the gallbladder posterior wall, other than that the biliary anatomy was unremarkable Procedure done: Laparoscopic cholecystectomy Specimens removed/disposition: gallbladder Surgeon: Dk Benitez MD Professor Of Floriculture: AUGUSTINE OR STaff Estimated blood loss: 20 Complications: none apparent Brief History: 55-year-old female with symptomatic lithiasis who presents for laparoscopic cholecystectomy. All risk benefits were discussed with the patient and documented in the preop note Procedure: Patient was brought into the OR, she was placed in a supine position. General anesthesia was given. The abdomen was prepped and draped in the usual sterile fashion. A timeout was conducted. I accessed the abdomen via a 5 mm Optiview port in the left upper quadrant. Initial pneumoperitoneum was obtained and no evidence of visceral injury during entry was noted. Some adhesions from the omentum to the anterior abdominal wall in the infraumbilical position were noted likely from previous total abdominal hysterectomy, this will left undisturbed. A 12 mm trocar was placed in the infraumbilical position under direct visualization. Additional 5 mm trocars were placed in the epigastrium right upper quadrant and right flank under direct visualization. The gallbladder was grasped from the fundus and retracted cephalad, I then grasped the infundibulum and retracted in the inferolateral direction exposing the hepatocystic triangle. The peritoneum anterior to the hepatocystic triangle was opened with electrocautery, I carried this opening in the medial and lateral direction to the edges of the liver and then on the sides of the gallbladder to allow for better exposure. While opening the peritoneum on the left side of the gallbladder I encountered some previous arterial bleeding coming from an artery that was inserting high into the posterior gallbladder wall, the artery was controlled with 2 clips and bleeding was controlled. With careful blunt dissection as well as electrocautery I was able to encircle the cystic duct and artery, I also elevated lower third of the gallbladder from the liver bed, thus creating a critical view of safety. The cystic duct and artery were double clipped proximally and single clipped distally and transected. The gallbladder was removed from the liver bed using electrocautery. The gallbladder was retrieved in an Endo Catch bag via the umbilical trocar site. The liver bed and clips were inspected the area was hemostatic, there was no evidence of bile leak the clips appeared to be in good position. The liver bed was irrigated and suctioned. The infraumbilical trocar was removed and trocar site was closed with a 0 Vicryl Maciej-Yessenia suture passer under direct visualization. The epigastrium right upper quadrant right flank trocars were removed under direct visualization, the left upper quadrant trocar was used to evacuate the pneumoperitoneum and subsequently removed. Local anesthesia was infiltrated. Hemostasis was achieved from the trocar sites. The wounds were closed in layers using #3-0 Vicryl for the subcutaneous tissue #4 Monocryl for the skin. At the end of the procedure all counts were correct, the patient tolerated well the procedure was transferred to the PACU in stable condition.
[2025-06-12] MEDS: HYDROmorphone 1 mg/mL INJ 1ml 0.5 MG IVP ×2 (09:00→09:30)
[2025-06-12] MEDS: ondansetron 2 mg/ML SDV 2 mL 4 MG IVP ×2 (09:03→09:07)
[2025-06-12] MEDS: midazolam 1 mg/mL INJ 2 mL 2 MG IVP (09:10)
[2025-06-12] MEDS: metoclopramide 5 mg/mL SDV 2 mL 10 MG IVP (09:25)
[2025-06-12] MEDS: diphenhydrAMINE 50 mg/mL SDV 1mL (09:35)
[2025-06-12] MEDS: acetaminophen 1,000 MG/100 ML PIGGYBACK 400 MG IV (09:45)
--- NOTE | 2025-06-12 09:50 | ANE.PACU2 ---
Inpatient post-anesthesia follow up: Airway intact: Yes Vital signs: Temperature 97.8 F Pulse Rate 95 Respiratory Rate 18 Blood Pressure 128/75 Pulse Oximetry 97 Oxygen Delivery Me thod Room Air Oxygen Flow Rate Fraction of Inspir ed Oxygen Hydration adequate: Yes Nausea and vomiting: No Pain level: 1 Mental status: Baseline
--- NOTE | 2025-06-12 11:12 | SUR.PHASEII ---
1015 son Noman called for ride,1050 ride here and assisted patient in vehicle,without any c/o
== END 2025-06-12 11:00 | disposition home or self-care (01) ==
PROVIDERS: PCP Family Medicine; Visit Provider Surgery
PROC: 0FT44ZZ Resection of Gallbladder, Percutaneous Endoscopic Approach (ICD-10-PCS; CPT 47562; principal; 2025-06-12 07:00)
DX: K80.10 Calculus of gallbladder with chronic cholecystitis without obstruction (principal); I10 Essential (primary) hypertension; E11.9 Type 2 diabetes mellitus without complications; Z85.850 Personal history of malignant neoplasm of thyroid; F33.3 Major depressive disorder, recurrent, severe with psychotic symptoms; F43.12 Post-traumatic stress disorder, chronic; F41.9 Anxiety disorder, unspecified; F17.290 Nicotine dependence, other tobacco product, uncomplicated; Z79.4 Long term (current) use of insulin
CPT/HCPCS: 47562; 36416; 82962; 88304; J0131; J0360; J0690; J1100; J1171; J1200; J1885; J2250; J2405; J2704; J2765; J3010; J3490; J7030; J9999

== ENCOUNTER → 2025-06-27 08:10 | Outpatient (BNVA) | payer OTHER, MEDICAID, SELFPAY | PROVIDERS: PCP Family Medicine; Visit Provider Surgery | DX: Z98.890 Other specified postprocedural states (principal); Z90.49 Acquired absence of other specified parts of digestive tract | CPT/HCPCS: 99024 ==